=== PATIENT | female | born 1985 | race Caucasian/White ===

== ENCOUNTER 2021-08-27 10:01 | Emergency (ER) | payer OTHER ==
[~2021-08-27] VITALS: Ht 167.6 cm; Wt 90.7 kg
--- NOTE | 2021-08-27 10:28 | NUR ---
[address]ANE [facility] Escorted by Officer Fortunato [id number] for OTB/Back pain 02/15. Denies injury. Respiration regular and unlabored. Will continue to monitor the patient.
[2021-08-27] MEDS ORDERED: IBUPROFEN 400 MG TABLET ONE (10:30)
[2021-08-27] MEDS ORDERED: CYCLOBENZAPRINE 10 MG TABLET PO ONE (10:30)
[2021-08-27] MEDS ORDERED: CYCLOBENZAPRINE 10 MG TABLET ONE (10:30)
[2021-08-27] MEDS ORDERED: HYDROCODONE/APAP 5/325MG TABLET ONE (10:30)
[2021-08-27] MEDS ORDERED: IBUPROFEN 400 MG TABLET PO ONE (10:30)
[2021-08-27] MEDS ORDERED: HYDROCODONE/APAP 5/325MG TABLET PO ONE (10:30)
[2021-08-27] MEDS ORDERED: NAPR-1192 PO (11:29)
[2021-08-27] MEDS ORDERED: OXYC5CAP18 PO (11:29)
[2021-08-27] MEDS ORDERED: CYCL5TAB PO (11:29)
--- NOTE | 2021-08-27 11:39 | NUR ---
Patient discharged in stable condition with [employer] officers. Written and verbal after care instructions given. Patient and the officers verbalized understanding of instruction.
[2021-08-27 11:40] VITALS: BP 138/76
== END 2021-08-27 11:41 ==
LOC: ER 10:04
DX: M54.42 Lumbago with sciatica, left side (principal); Z88.0 Allergy status to penicillin; Z79.899 Other long term (current) drug therapy

== ENCOUNTER 2024-07-02 14:55 | Emergency (ER) | payer MEDICAID, OTHER ==
[~2024-07-02] VITALS: Ht 167.6 cm; Wt 90.7 kg
[~2024-07-02 14:55] MED LIST: CYCL5TAB PO; NAPR-1192 PO; OXYC5CAP18 PO
[2024-07-02 15:10] VITALS: BP 162/88; TEMP 98.2
[2024-07-02] MEDS ORDERED: SULF1TAB48 PO (15:24)
[2024-07-02 16:23] VITALS: O2SAT 99
== END 2024-07-02 16:24 | disposition home or self-care (01) ==
LOC: ER 15:05
DX: L03.311 Cellulitis of abdominal wall (principal); L03.312 Cellulitis of back [any part except buttock and flank]; Z88.0 Allergy status to penicillin

== ENCOUNTER 2024-07-17 16:30 | Emergency (ER) | payer MEDICAID ==
[~2024-07-17] VITALS: Ht 167.6 cm; Wt 81.6 kg
[~2024-07-17 16:30] MED LIST changes: +SULF1TAB48 PO
[2024-07-17 16:57] VITALS: BP 138/83; TEMP 98.3
[2024-07-17] MEDS ORDERED: CLIN150C16 PO (17:13)
[2024-07-17 17:18] VITALS: O2SAT 99
== END 2024-07-17 17:18 | disposition home or self-care (01) ==
LOC: ER 16:32
DX: L08.9 Local infection of the skin and subcutaneous tissue, unspecified (principal); F17.200 Nicotine dependence, unspecified, uncomplicated; Z88.0 Allergy status to penicillin; W57.XXXA Bitten or stung by nonvenomous insect and other nonvenomous arthropods, initial encounter; Y93.89 Activity, other specified; Y92.89 Other specified places as the place of occurrence of the external cause; Y99.8 Other external cause status